=== PATIENT | male | born 1980 | race Caucasian/White ===

== ENCOUNTER 2016-11-20 13:33 | Emergency (ER) | payer BC ==
[2016-11-20] MEDS ORDERED: LIDOCAINE 2% VISC 15 ML UDC ONE (15:01)
[2016-11-20] MEDS ORDERED: ALU/MAG/SIM 30 ML UDC ONE (15:01)
[2016-11-20] MEDS ORDERED: SODIUM CHLORIDE 0.9% 1,000 ML ONE (15:02)
== END 2016-11-20 16:21 | disposition home or self-care (01) ==
LOC: ER 13:33
CPT/HCPCS: 36415; 76705; 80053; 81003; 82553; 83690; 84484; 85025; 93005